=== PATIENT | female | born 1960 | race Caucasian/White ===

== ENCOUNTER 2016-06-14 12:21 | Outpatient (CLI) | payer OTHER ==
[2012-10-24 04:50] VITALS: BP 142/78
== END 2016-06-14 12:30 ==
LOC: LABRHC 12:21
PROVIDERS: ATTEND Family Medicine
DX: R07.0 Pain in throat (principal)
CPT/HCPCS: 87070

== ENCOUNTER 2017-04-30 16:38 | Outpatient (CLI) | payer OTHER ==
[2012-10-24 04:50] VITALS: BP 142/78
== END 2017-04-30 16:48 ==
LOC: LABRHC 16:38
PROVIDERS: ATTEND Family Medicine
DX: R31.29 Other microscopic hematuria (principal)
CPT/HCPCS: 87086

== ENCOUNTER 2017-05-02 12:58 | Outpatient (CLI) | payer OTHER ==
[2012-10-24 04:50] VITALS: BP 142/78
[2017-05-02 13:17] LABS: BASOPHILS % 0.9 (0.0-1.5); EOSINOPHILS % 2.7 % (0.0-6.8); MEAN CORPUSCULAR HEMOGLOBIN 28.4 pg (28.0-34.0); MEAN CORPUSCULAR VOLUME 85.2 fl (80.0-100.0); MONOCYTES % 4.5 % (0.0-11.0)
[2017-05-02 13:56] LABS: eGFR (African) > 60; eGFR (Non-African) > 60
--- NOTE | 2017-05-02 14:08 | Diagnostic Imaging Report ---
YUNG ORTIZ [facility] [address] [facility] [address] [place], [place]. [address] Report Submission Date: May 02, 2017 1:55:34 PM [employer] WORK[employer] Patient Study Name: EDER CARSON Date: May 02, 2017 1:14:52 PM [employer]UTE WORK[employer] Modality Type: CT\SR Gender: F Description: CT ABD & PELVIS W/O CO : 62 Institution: [facility] Physician: YUNG ORTIZ Examination: CT Abdomen/pelvis History: Hematuria. Comparison exams: None available Technique: CT Abdomen/pelvis without contrast protocol. Findings: Kidneys are symmetric in size. 1 mm cortical calcification inferior margin left kidney. Calcifications involving the peripheral aspect of left renal cysts. Right renal cyst without peripheral calcification. Ureters are nondilated in their course through the abdomen and pelvis. No central calcification. Bladder margins are within normal limits. Liver, spleen, adrenal glands, pancreas and gallbladder are without irregularity given exam technique. No gallstone. Abdominal aorta without aneurysm or peripheral atherosclerotic disease. Cardiac silhouette not enlarged. No pericardial effusion. Bowel without contrast limiting evaluation. No evidence for acute mesenteric inflammation or free air. Stool within the large bowel. Appendix is visualized and is without inflammatory changes. Osseous structures are appropriate for age. Lung bases demonstrate mild dependent atelectasis. No effusion. Impression: Left nephrolithiasis. No evidence for ureterolithiasis. Bilateral renal cysts. Left renal cysts appear to have peripheral calcifications suggesting Bosniak type II classification. Consider dedicated imaging if clinically warranted. No acute appearing upper abdominal organ inflammatory process. No gallstone. No abnormal bowel dilation or inflammation. Lung base atelectasis. No effusion. Electronically signed on May 02, 2017 1:55:34 PM CHUTE WORKER by: Dharmesh FRAZIER
== END 2017-05-02 14:51 ==
LOC: RAD 12:58
PROVIDERS: ATTEND Family Medicine
DX: R10.9 Unspecified abdominal pain (principal)
CPT/HCPCS: 36415; 74176; 80048; 85025